=== PATIENT | male | born 1975 | race Caucasian/White ===

== ENCOUNTER 2020-06-25 15:58 | Outpatient (CLI) | payer OTHER, SELFPAY ==
[2020-06-25 16:34] LABS: SARS-CoV-2 Ag Positive (Negative)
== END 2020-06-25 15:59 | disposition home or self-care (01) ==
LOC: CHSLAB 16:01
PROVIDERS: PCP Family Medicine; Visit Provider Family Medicine
DX: U07.1 COVID-19 (principal)
CPT/HCPCS: 87426

== ENCOUNTER 2022-05-19 14:18 | Outpatient (CLI) | payer OTHER, SELFPAY ==
[2022-05-19 15:25] LABS: SARS-CoV-2 RNA PCR Positive (Negative)
== END 2022-05-19 14:19 | disposition home or self-care (01) ==
PROVIDERS: PCP Family Medicine; Visit Provider Family Medicine
DX: U07.1 COVID-19 (principal)
CPT/HCPCS: U0003; U0005